=== PATIENT | female | born 1995 | race Caucasian/White ===

== ENCOUNTER 2021-04-07 10:26 | Emergency (ER) | payer BC, OTHER ==
[2021-04-07] MEDS ORDERED: Sodium Chloride 0.9% 1,000 ML IV ONE (10:33)
--- NOTE | 2021-04-07 10:48 | EDM.PDOC ---
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 Patient is receiving her second dose of Pfizer vaccination and while in her 15-minute observation period was noted to pass out and have seizure-like activity lasting approximately 20 seconds. She then momentarily regained consciousness and had a another episode of passing out with possible seizure-like activity lasting around 20 seconds. She woke up and was not postictal, feeling a bit of generalized weakness but otherwise well. Denies any symptoms right now other than feeling anxious about the health of her fetus. - Related Data Allergies Allergy/AdvReac Type Severity Reaction Status Date / Time amoxicillin Allergy Rash Verified 04/07/21 10:29 cefdinir Allergy Rash Verified 04/07/21 10:30 nitrofurantoin Allergy Rash Verified 04/07/21 10:30 [From Macrobid] sulfamethoxazole Allergy Rash Verified 04/07/21 10:30 [From Bactrim] trimethoprim [From Bactrim] Allergy Rash Verified 04/07/21 10:30 Home Meds: Home Meds Pnv No.95/Ferrous Fum/Folic AC [ Caplet] 1 tab PO DAILY 04/07/21 [History] Past Medical History HEENT History: Reports: None Cardiovascular History: Reports: None Respiratory History: Reports: None Gastrointestinal History: Reports: None Genitourinary History: Reports: None 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: 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: Musculoskeletal History: Reports: None Neurological History: Reports: None Psychiatric History: Reports: None Endocrine/Metabolic History: Reports: None Hematologic History: Reports: None Immunologic History: Reports: None Oncologic (Cancer) History: Reports: None Dermatologic History: Reports: None - Infectious Disease History Infectious Disease History: Reports: Chicken Pox - Past Surgical History Head Surgeries/Procedures: Reports: None HEENT Surgical History: Reports: Adenoidectomy, Oral Surgery, Tonsillectomy Dermatological Surgical History: Reports: Other (See Below) Social & Family History - Family History Family Medical History: No Pertinent Family History - Tobacco Use Tobacco Use Status *Q: Never Tobacco User Second Hand Smoke Exposure: No - Caffeine Use Caffeine Use: Reports: Coffee - Recreational Drug Use Recreational Drug Use: No ED ROS GENERAL - Review of Systems Review Of Systems: Comprehensive ROS is negative, except as noted in HPI. ED EXAM, GENERAL - Physical Exam Exam: See Below Exam Limited By: No Limitations General Appearance: Alert, WD/WN, No Apparent Distress Eye Exam: Bilateral Eye: EOMI, PERRL Ears: Hearing Grossly Normal Throat/Mouth: Normal Voice, No Airway Compromise Head: Atraumatic, Normocephalic Neck: Normal Inspection Respiratory/Chest: No Respiratory Distress, Lungs Clear, Normal Breath Sounds, No Accessory Muscle Use Cardiovascular: Normal Peripheral Pulses, Regular Rate, Rhythm GI/Abdominal: Soft, Non-Tender Extremities: Normal Inspection Neurological: Alert, Oriented, CN II-XII Intact, Normal Cognition, No Motor/Sensory Deficits Psychiatric: Normal Affect, Normal Mood, Anxious Skin Exam: Warm, Dry, Intact, Normal Color #1 Interpretation EKG Date: 04/07/21 Time: 10:54 Rhythm: NSR Rate (Beats/Min): 75 [place]: Normal P-Wave: Present QRS: Normal ST-T: Normal QT: Normal IA/PQ Interval: 148 Comparison: NA - No Prior EKG EKG Interpretation Comments: Normal EKG, no evidence of right heart strain, normal axis intervals Course - Vital Signs Last Recorded V/S: Last Vital Signs Temp 98.4 F 04/07/21 10:30 Pulse 77 04/07/21 10:30 Resp 18 04/07/21 10:30 BP 109/75 04/07/21 10:30 Pulse Ox 100 04/07/21 10:30 - Orders/Labs/Meds Orders: Active Orders 24 hr Category Date Time Status Assess Heart Rate [ Heart Rate] [RC] Click Care 04/07/21 10:35 Active to Edit Blood Glucose Check, Bedside [RC] ONETIME Care 04/07/21 10:34 Active EKG Documentation Completion [RC] STAT Care 04/07/21 10:33 Active HCG QUANTITATIVE [CHEM] Stat Lab 04/07/21 11:15 Ordered REFLEX LACTIC ACID YES OR NO [CHEM] Routine Lab 04/07/21 11:25 Received Sodium Chloride 0.9% [Normal Saline] 1,000 ml Med 04/07/21 10:33 Active IV .Bolus Saline Lock Insert [OM.PC] Stat Oth 04/07/21 10:33 Ordered Medication Orders Sodium Chloride (Normal Saline) 1,000 mls @ 999 mls/hr IV .Bolus ONE Stop: 04/07/21 11:33 Last Admin: 04/07/21 10:39 Dose: 999 mls/hr Documented by: CHRISTINE Labs: Laboratory Tests 04/07/21 04/07/21 04/07/21 Range/Units 10:35 10:35 10:35 WBC 10.39 (4.0-11.0) K/uL RBC 4.07 L (4.30-5.90) M/uL Hgb 12.2 (12.0-16.0) g/dL Hct 34.9 L (36.0-46.0) % MCV 85.7 (80.0-98.0) fL MCH 30.0 (27.0-32.0) pg MCHC 35.0 (31.0-37.0) g/dL RDW Std Deviation 39.8 (28.0-62.0) fl RDW Coeff of [place]omi 13 (11.0-15.0) % Plt Count 248 (150-400) K/uL MPV 9.50 (7.40-12.00) fL Neut % (Auto) 74.2 (48.0-80.0) % Lymph % (Auto) 17.2 (16.0-40.0) % [place] % (Auto) 7.9 (0.0-15.0) % Eos % (Auto) 0.5 (0.0-7.0) % Baso % (Auto) 0.2 (0.0-1.5) % Neut # (Auto) 7.7 H (1.4-5.7) K/uL Lymph # (Auto) 1.8 (0.6-2.4) K/uL [place] # (Auto) 0.8 (0.0-0.8) K/uL Eos # (Auto) 0.1 (0.0-0.7) K/uL Baso # (Auto) 0.0 (0.0-0.1) K/uL Nucleated RBC % 0.0 /100WBC Nucleated RBCs # 0 K/uL Sodium 136 (136-145) mmol/L Potassium 3.5 (3.5-5.1) mmol/L Chloride 102 (98-107) mmol/L Carbon Dioxide 22.2 (21.0-32.0) mmol/L BUN 6 L (7.0-18.0) mg/dL Creatinine 0.7 (0.6-1.0) mg/dL Est Cr Clr Drug Dosing 129.51 mL/min Estimated GFR (MDRD) > 60.0 ml/min Glucose 83 (74-106) mg/dL Lactic Acid 2.1 H* (0.4-2.0) mmol/L Calcium 8.8 (8.5-10.1) mg/dL Total Bilirubin 0.4 (0.2-1.0) mg/dL AST 6 L (15-37) IU/L ALT 12 L (14-63) IU/L Alkaline Phosphatase 48 (46-116) U/L Total Protein 6.8 (6.4-8.2) g/dL Albumin 3.0 L (3.4-5.0) g/dL Globulin 3.8 (2.6-4.0) g/dL Albumin/Globulin Ratio 0.8 L (0.9-1.6) HCG, Qual (NEG) 04/07/21 Range/Units 10:35 WBC (4.0-11.0) K/uL RBC (4.30-5.90) M/uL Hgb (12.0-16.0) g/dL Hct (36.0-46.0) % MCV (80.0-98.0) fL MCH (27.0-32.0) pg MCHC (31.0-37.0) g/dL RDW Std Deviation (28.0-62.0) fl RDW Coeff of [place] (11.0-15.0) % Plt Count (150-400) K/uL MPV (7.40-12.00) fL Neut % (Auto) (48.0-80.0) % Lymph % (Auto) (16.0-40.0) % [place] % (Auto) (0.0-15.0) % Eos % (Auto) (0.0-7.0) % Baso % (Auto) (0.0-1.5) % Neut # (Auto) (1.4-5.7) K/uL Lymph # (Auto) (0.6-2.4) K/uL [place] # (Auto) (0.0-0.8) K/uL Eos # (Auto) (0.0-0.7) K/uL Baso # (Auto) (0.0-0.1) K/uL Nucleated RBC % /100WBC Nucleated RBCs # K/uL Sodium (136-145) mmol/L Potassium (3.5-5.1) mmol/L Chloride (98-107) mmol/L Carbon Dioxide (21.0-32.0) mmol/L BUN (7.0-18.0) mg/dL Creatinine (0.6-1.0) mg/dL Est Cr Clr Drug Dosing mL/min Estimated GFR (MDRD) ml/min Glucose (74-106) mg/dL Lactic Acid (0.4-2.0) mmol/L Calcium (8.5-10.1) mg/dL Total Bilirubin (0.2-1.0) mg/dL AST (15-37) IU/L ALT (14-63) IU/L Alkaline Phosphatase (46-116) U/L Total Protein (6.4-8.2) g/dL Albumin (3.4-5.0) g/dL Globulin (2.6-4.0) g/dL Albumin/Globulin Ratio (0.9-1.6) HCG, Qual POSITIVE H (NEG) Meds: Medications Generic Name Dose Route Start Last Admin Trade Name Freq PRN Reason Stop Dose Admin Sodium Chloride 1,000 mls @ 999 mls/hr 04/07/21 10:33 04/07/21 10:39 Normal Saline IV 04/07/21 11:33 999 mls/hr .Bolus ONE Administration - Re-Assessments/Exams Free Text/Narrative Re-Assessment/Exam: 04/07/21 10:46 Patient's symptoms suggestive of syncopal episode vs seizure; will get labs. Will give IVFB. Will check EKG and accucheck. Will get FHR 04/07/21 11:28 FHR 145 04/07/21 11:[address] Buitrago oracle [employer] consultant for [facility] [place] who recommends patient follow-up in one-week for appointment. No specific recommendations at this time. No further workup necessary. Patient remains well appearing. Her labs are grossly unremarkable aside from mildly elevated lactate at 2.1. Will d/c with OBGYN f/u Departure - Departure Time of Disposition: 11:32 Disposition: Home, Self-Care 01 Condition: Good Clinical Impression: Adverse effect of vaccine Qualifiers: Encounter type: initial encounter Qualified Code(s): T50.Z95A - Adverse effect of other vaccines and biological substances, initial encounter - Discharge Information Instructions: Seizure, Adult, [id number] Referrals: Samuel Kaba MD [Primary Care Provider] - Forms: ED Department Discharge Additional Instructions: Your labs were grossly unremarkable aside from a mildly elevated lactic acid level. We gave you a 1 L fluid bolus to help with this. Your heart rate was normal. I did speak with the [employer] LIFT COMPRESSER on-call for [facility], Dr. Buitrago. She would like you to follow-up in their clinic in 1 week for reassessment. Please stay well-hydrated today, you can also take Tylenol to help with any body aches or mild fever that you may get as a result of your vaccination. If you have any further seizure-like episodes then you should come immediately back to the emergency department. I believe this is unlikely to happen but you will need reassessment if it does happen again. We do not typically start seizure medications after an episode like this as this is likely related to the vaccination you received today and you are unlikely to have another seizure-like episode. Further, antiepileptic drugs can be harmful to your fetus. It is unlikely that your fetus experienced any harm today considering the short duration of these episodes, your normal lab work, and your reassuring heart rate monitoring. The following information is given to patients seen in the emergency department who are being discharged to home. This information is to outline your options for follow-up care. We provide all patients seen in our emergency department with a follow-up referral. The need for follow-up, as well as the timing and circumstances, are variable depending upon the specifics of your emergency department visit. If you don't have a primary care physician on staff, we will provide you with a referral. We always advise you to contact your personal physician following an emergency department visit to inform them of the circumstance of the visit and for follow-up with them and/or the need for any referrals to a consulting specialist. The emergency department will also refer you to a specialist when appropriate. This referral assures that you have the opportunity for follow-up care with a specialist. All of these measure are taken in an effort to provide you with optimal care, which includes your follow-up. Under all circumstances we always encourage you to contact your private physician who remains a resource for coordinating your care. When calling for follow-up care, please make the office aware that this follow-up is from your recent emergency room visit. If for any reason you are refused follow-up, please contact the [facility] at and asked to speak to the emergency department charge nurse. Please follow up with your primary care physician. If you do not have a primary care physician, see below: [facility] [address] [place] [id number] [facility] [address] [place] [id number] [facility] [address] [place] [id number] Sepsis Event Note (ED) - Evaluation Sepsis Screening Result: No Definite Risk - Focused Exam Vital Signs: Vital Signs Temp Pulse Resp BP Pulse Ox 04/07/21 10:30 98.4 F 77 18 109/75 100 - My Orders Last 24 Hours: My Active Orders 04/07/21 10:33 EKG Documentation Completion [RC] STAT Sodium Chloride 0.9% [Normal Saline] 1,000 ml IV .Bolus Saline Lock Insert [OM.PC] Stat 04/07/21 10:34 Blood Glucose Check, Bedside [RC] ONETIME 04/07/21 10:35 Assess Heart Rate [ Heart Rate] [RC] Click to Edit 04/07/21 11:15 HCG QUANTITATIVE [CHEM] Stat 04/07/21 11:25 REFLEX LACTIC ACID YES OR NO [CHEM] Routine - Assessment/Plan Last 24 Hours: My Active Orders 04/07/21 10:33 EKG Documentation Completion [RC] STAT Sodium Chloride 0.9% [Normal Saline] 1,000 ml IV .Bolus Saline Lock Insert [OM.PC] Stat 04/07/21 10:34 Blood Glucose Check, Bedside [RC] ONETIME 04/07/21 10:35 Assess Heart Rate [ Heart Rate] [RC] Click to Edit 04/07/21 11:15 HCG QUANTITATIVE [CHEM] Stat 04/07/21 11:25 REFLEX LACTIC ACID YES OR NO [CHEM] Routine
[2021-04-07 11:20] LABS: BLOOD UREA NITROGEN,BUN 6 mg/dL (7.0-18.0); CARBON DIOXIDE,CO2 22.2 mmol/L (21.0-32.0); CHLORIDE,CL 102 mmol/L (98-107); GLUCOSE RANDOM 83 mg/dL (74-106); POTASSIUM,K 3.5 mmol/L (3.5-5.1); SODIUM,NA 136 mmol/L (136-145)
== END 2021-04-07 12:48 | disposition home or self-care (01) ==
LOC: MW.ED 10:26
DX: O9A.23 Injury, poisoning and certain other consequences of external causes complicating the puerperium (principal); T50.Z95A Adverse effect of other vaccines and biological substances, initial encounter; Z88.0 Allergy status to penicillin; Z88.1 Allergy status to other antibiotic agents; Z3A.17 17 weeks gestation of pregnancy
CPT/HCPCS: 36415; 80053; 83605; 84702; 84703; 85025; 93005; 99284; J7030

== ENCOUNTER 2021-09-14 15:10 | Inpatient (IN) | payer BC ==
[2021-09-14] MEDS ORDERED: Misoprostol 200 MCG Tab PO PRN (15:26)
[2021-09-14] MEDS ORDERED: Water For Irrigation,Sterile 1,000 ML Container IRR PRN (15:26)
[2021-09-14] MEDS ORDERED: Tranexamic Acid 1,000 MG in Sodium Chloride 0.9% 100 ML IV PRN (15:26)
[2021-09-14] MEDS ORDERED: Sodium Chloride 0.9% 10 ML Syringe FLUSH PRN (15:26)
[2021-09-14] MEDS ORDERED: Carboprost Tromethamine 250 MCG/1 ML Amp IM PRN (15:26)
[2021-09-14] MEDS ORDERED: Sodium Chloride 0.9% 20 ML SDV IV PRN (15:26)
[2021-09-14] MEDS ORDERED: Sodium Chloride 0.9% 2.5 ML Syringe FLUSH PRN (15:26)
[2021-09-14] MEDS ORDERED: Methylergonovine 0.2 MG/1 ML Amp IM PRN (15:26)
[2021-09-14] MEDS ORDERED: Butorphanol 1 MG/ML SDV IVPUSH PRN (15:26)
[2021-09-14] MEDS ORDERED: Lidocaine 1% 50 ML MDV INJECT PRN (15:26)
[2021-09-14] MEDS ORDERED: Ondansetron 4 MG/2 ML SDV IVPUSH PRN (15:26)
[2021-09-14] MEDS ORDERED: Oxytocin/0.9 % Sodium Chloride 30 UNIT/500 ML BAG IV SCH ×2 (15:30)
[2021-09-14] MEDS ORDERED: Terbutaline 1 MG/ML SDV SUBCUT PRN (15:30)
[2021-09-14] MEDS ORDERED: Misoprostol 25 MCG (1/4 of 100 MCG) Tab VAG PRN ×2 (15:30→20:00)
[2021-09-14] MEDS ORDERED: Vancomycin 2 GM in Sodium Chloride 0.9% 500 ML IV ONE (16:15)
[2021-09-14] MEDS: Lactated Ringers 1,000 ML IV SCH (16:28)
[2021-09-14 16:43] LABS: BLOOD UREA NITROGEN,BUN 10 mg/dL (7.0-18.0); CARBON DIOXIDE,CO2 19.1 mmol/L (21.0-32.0); CHLORIDE,CL 105 mmol/L (98-107); GLUCOSE RANDOM 99 mg/dL (74-106); POTASSIUM,K 4.2 mmol/L (3.5-5.1); SODIUM,NA 136 mmol/L (136-145)
[2021-09-14] MEDS ORDERED: diphenhydrAMINE 50 MG/ML SDV IVPUSH ONE (17:44)
[2021-09-15] MEDS ORDERED: Vancomycin 1.75 GM in Sodium Chloride 0.9% 500 ML IV SCH (00:30)
[2021-09-15] MEDS ORDERED: Vancomycin 1 GM in Sodium Chloride 0.9% 500 ML IV SCH (04:00)
[2021-09-15] MEDS: Lactated Ringers 1,000 ML IV SCH ×2 (04:15→05:38)
[2021-09-15] MEDS ORDERED: Ropivacaine 100 ML ONE ×2 (05:03→10:40)
[2021-09-15] MEDS ORDERED: fentaNYL 100 MCG/2 ML SDV ONE ×2 (05:03→10:40)
[2021-09-15] MEDS ORDERED: ePHEDrine 50 MG/ML SDV IVPUSH PRN (05:27)
[2021-09-15] MEDS ORDERED: Bupivacaine 0.5% 10 ML SDV ONE ×2 (10:40→10:42)
[2021-09-15] MEDS ORDERED: Docusate Sodium 100 MG Cap PO PRN (13:56)
[2021-09-15] MEDS ORDERED: Bisacodyl 10 MG Supp RECTAL PRN (13:56)
[2021-09-15] MEDS ORDERED: Lanolin 100% Cream 7 GM Tube TOP PRN (13:56)
[2021-09-15] MEDS ORDERED: Benzocaine/Menthol 20%-0.5% Spray 78 GM Cannister TOP PRN (13:56)
[2021-09-15] MEDS ORDERED: Witch Hazel Medicated Pads 40/Jar TOP PRN (13:56)
[2021-09-15] MEDS ORDERED: Acetaminophen 500 MG Tab PO PRN (13:56)
[2021-09-15] MEDS ORDERED: Ibuprofen 400 MG Tab PO PRN (13:56)
[2021-09-15] MEDS ORDERED: oxyCODONE 5 MG Tab PO PRN (13:56)
[2021-09-15] MEDS: Ibuprofen 800 MG Tab PO PRN (19:47)
[2021-09-16] MEDS: Ibuprofen 800 MG Tab PO PRN ×2 (04:11→14:19)
[2021-09-16] MEDS: Acetaminophen 500 MG Tab PO PRN ×2 (08:59→20:51)
[2021-09-17] MEDS: Ibuprofen 800 MG Tab PO PRN (02:57)
[2021-09-17] MEDS: Acetaminophen 500 MG Tab PO PRN (08:24)
== END 2021-09-17 12:49 | disposition home or self-care (01) | DRG 542 ==
LOC: MW.OBCHECK 15:10 → MW.OB 15:11 → MW.OBCHECK 15:15 → OBSVTOIN 09-15 13:56 → MW.OB 09-15 22:48
PROVIDERS: ADMIT Obstetrics & Gynecology; ATTEND Obstetrics & Gynecology
PROC: 10E0XZZ Delivery of Products of Conception, External Approach (ICD-10-PCS; principal; 2021-09-15)
PROC: 10907ZC Drainage of Amniotic Fluid, Therapeutic from Products of Conception, Via Natural or Artificial Opening (ICD-10-PCS; 2021-09-15)
PROC: 0DQR0ZZ Repair Anal Sphincter, Open Approach (ICD-10-PCS; 2021-09-15)
PROC: 3E0R3BZ Introduction of Anesthetic Agent into Spinal Canal, Percutaneous Approach (ICD-10-PCS; 2021-09-15)
PROC: 00HU33Z Insertion of Infusion Device into Spinal Canal, Percutaneous Approach (ICD-10-PCS; 2021-09-15)
PROC: 3E0234Z Introduction of Serum, Toxoid and Vaccine into Muscle, Percutaneous Approach (ICD-10-PCS; 2021-09-16)
DX: O14.04 Mild to moderate pre-eclampsia, complicating childbirth (principal); Z37.0 Single live birth; Z20.822 Contact with and (suspected) exposure to COVID-19; O26.893 Other specified pregnancy related conditions, third trimester; O70.20 Third degree perineal laceration during delivery, unspecified; Z3A.39 39 weeks gestation of pregnancy; Z67.11 Type A blood, Rh negative
CPT/HCPCS: 01967; 36415; 36430; 59025; 59409; 80053; 81003; 82570; 82803; 84156; 85014; 85018; 85027; 85460; 86592; 86850; 86900; 86901; A9270-GY; J1200; J2590; J2790; J2795; J3010; J3370; J3490; J7040; J7120; U0002

== ENCOUNTER 2022-02-03 07:45 | Emergency (ER) | payer BC, OTHER ==
[2022-02-03] MEDS ORDERED: Acetaminophen 500 MG Tab PO ONE (08:25)
[2022-02-03] MEDS ORDERED: Sodium Chloride 0.9% 1,000 ML IV ONE (08:25)
[2022-02-03 08:58] LABS: CORONAVIRUS COVID-19 NAA NEGATIVE (NEGATIVE); INFLUENZA A NAA NEGATIVE (NEGATIVE); INFLUENZA B NAA NEGATIVE (NEGATIVE)
[2022-02-03 09:21] LABS: CARBON DIOXIDE,CO2 25.3 mmol/L (21.0-32.0); POTASSIUM,K 3.7 mmol/L (3.5-5.1)
[2022-02-03] MEDS ORDERED: Ketorolac 30 MG/ML SDV IVPUSH ONE (10:18)
== END 2022-02-03 11:40 | disposition home or self-care (01) ==
LOC: MW.ED 07:45
DX: J00 Acute nasopharyngitis [common cold] (principal); Z88.0 Allergy status to penicillin; Z88.1 Allergy status to other antibiotic agents; Z88.7 Allergy status to serum and vaccine; Z86.16 Personal history of COVID-19; Z20.822 Contact with and (suspected) exposure to COVID-19
CPT/HCPCS: 0240U; 36415; 80053; 81003; 84443; 84703; 85025; 93005; 96361; 96374; 99283; A9270; J1885; J7030; 93010